=== PATIENT | female | born 1930 | race Caucasian/White ===

== ENCOUNTER 2018-08-27 17:31 | Inpatient (IN) | payer MEDICARE, MEDICAID ==
[~2018-08-27] VITALS: Ht 152.4 cm; Wt 90.9 kg
[~2018-08-27 17:31] MED LIST: BECL7.3A INH; CLOP75TA15 PO; COMIN IH; IBUP-24 PO; INSU100V36 SQ; LANTUS SQ; LOSA25TA96 PO
[2018-08-27] MEDS ORDERED: morphine 4 MG/ML inj SYRINge IV PRN (18:10)
[2018-08-27] MEDS ORDERED: normal saline 1000ML IV soln IVB ONE (18:10)
[2018-08-27] MEDS ORDERED: ondansetron/PF 4mg/2ml inj IV ONE ×2 (18:10→23:10)
[2018-08-27 19:33] LABS: BASOPHILS # (AUTO) 0.1 X10'3 (0-0.2); BASOPHILS % (AUTO) 0.4 % (0-1); EOSINOPHILS % (AUTO) 0 % (0-6); HEMOGLOBIN 13.4 g/dl (12.0-16.0); LYMPHOCYTES # (AUTO) 0.8 X10'3 (1.1-4.8); LYMPHOCYTES % (AUTO) 3.7 % (21-51); MEAN CORPUSCULAR HEMOGLOBIN 29.6 PG (27.0-31.0); MEAN CORPUSCULAR HGB CONC 33.4 % (33.0-36.5); MEAN CORPUSCULAR VOLUME 88.7 FL (78-98); MEAN PLATELET VOLUME 10.7 FL (7.4-10.4); MONOCYTES % (AUTO) 4.4 % (2-12); NEUTROPHILS # (AUTO) 20.2 X10'3 (1.8-7.7); NEUTROPHILS % (AUTO) 91.5 % (42-75); PLATELET COUNT 156 X10'3 (140-440); RED BLOOD COUNT 4.51 X10'6 (4.20-5.60); RED CELL DISTRIBUTION WIDTH 13.9 % (11.5-14.5); WHITE BLOOD COUNT 22.1 X10'3 (4.5-11.0)
[2018-08-27] MEDS ORDERED: levoFLOXACIN-Levaquin 750MG/D5 150 ML IV ONE (19:35)
[2018-08-27 19:49] LABS: ALANINE AMINOTRANSFERASE 24 U/L (12-78); ALBUMIN 2.8 G/DL (3.4-5.0); ALBUMIN/GLOBULIN RATIO 0.7 (1.1-1.5); ALKALINE PHOSPHATASE 79 IU/L (46-116); ANION GAP 7 (8-16); ASPARTATE AMINO TRANSFERASE 22 U/L (10-37); BILIRUBIN,TOTAL 0.7 MG/DL (0.1-1.0); BLOOD UREA NITROGEN 14 MG/DL (7-18); BUN/CREATININE RATIO 14.1 (6.6-38.0); CALCIUM 8.3 MG/DL (8.5-10.1); CHLORIDE 100 MMOL/L (99-107); CREATININE 0.99 MG/DL (0.40-0.90); GLUCOSE 229 MG/DL (70-104); POTASSIUM 3.4 MMOL/L (3.5-5.1); SODIUM 140 MMOL/L (135-145); TOTAL CARBON DIOXIDE 32.6 MMOL/L (24-32); TOTAL PROTEIN 6.8 G/DL (6.4-8.2); eGFR 53 ML/MIN
[2018-08-27] MEDS ORDERED: normal saline 1000ML IV soln IV ONE (19:50)
[2018-08-27 21:28] LABS: LARGE PLATELETS FEW; PLATELET ESTIMATE NORMAL
[2018-08-27] MEDS ORDERED: dextrose ORAL solution 15 GM/59 ML bottle PO PRN ×2 (23:05)
[2018-08-27] MEDS ORDERED: dextrose 50%-water 50ml dispensing syringe IV PRN ×2 (23:05)
[2018-08-27] MEDS ORDERED: glucagon, human recombinant 1mg kit SUBCUT PRN (23:05)
[2018-08-27] MEDS ORDERED: MESSAGE TO PHARMACY PO ONE (23:05)
[2018-08-27] MEDS ORDERED: FURO-150 PO (23:07)
[2018-08-27] MEDS ORDERED: PANT-47 PO (23:07)
[2018-08-27] MEDS ORDERED: INSU100C4 SQ (23:10)
[2018-08-27 23:25] LABS: LIPASE < 50 U/L (73-393)
[2018-08-27] MEDS ORDERED: potassium Cl 20 mEq SR tablet PO STA (23:37)
[2018-08-27] MEDS ORDERED: ondansetron/PF 4mg/2ml inj IV PRN (23:40)
[2018-08-27] MEDS ORDERED: magnesium hydroxide 30ml (MOM) UD suspension PO PRN (23:40)
[2018-08-27] MEDS ORDERED: mag hydrox/Alum hydrox/simeth 30ml oral suspension PO PRN (23:40)
[2018-08-27] MEDS ORDERED: acetaminophen 325mg tablet PO PRN (23:40)
[2018-08-27] MEDS ORDERED: polyethylene glycol 3350 17gm powd pack PO PRN (23:50)
[2018-08-28] VITALS (7 sets, daily range): BP systolic 112–202; BP diastolic 53–165
[2018-08-28] MEDS: ipratropium/albuterol 3ml nebule NEB PRN ×2 (01:38→19:38)
[2018-08-28 06:35] LABS: ALBUMIN 2.7 G/DL (3.4-5.0); ANION GAP 8 (8-16); BLOOD UREA NITROGEN 13 MG/DL (7-18); BUN/CREATININE RATIO 13.7 (6.6-38.0); CALCIUM 7.8 MG/DL (8.5-10.1); CHLORIDE 103 MMOL/L (99-107); CREATININE 0.95 MG/DL (0.40-0.90); GLUCOSE 229 MG/DL (70-104); POTASSIUM 4.2 MMOL/L (3.5-5.1); SODIUM 139 MMOL/L (135-145); eGFR 56 ML/MIN
[2018-08-28] MEDS: docusate sod 100mg capsule PO SCH ×2 (07:48→20:50)
[2018-08-28] MEDS: potassium Cl 20 mEq SR tablet PO SCH (07:49)
[2018-08-28] MEDS ORDERED: docusate sod 100mg capsule PO SCH (08:00)
[2018-08-28] MEDS ORDERED: INSU100I31 (09:07)
[2018-08-28] MEDS ORDERED: IPRA3AMP31 (09:07)
[2018-08-28] MEDS ORDERED: LORazepam 2 mg/ml vial IV ONE ×2 (10:35→21:35)
[2018-08-28] MEDS: acetaminophen 325mg tablet PO PRN ×2 (10:41→17:12)
[2018-08-28 10:44] LABS: CLARITY,URINE CLEAR (Clear); COLOR,URINE YELLOW (Yellow); GLUCOSE, URINE NEGATIVE (Neg); KETONES,URINE NEGATIVE (Neg); LEUKOCYTE ESTERASE ,URINE SMALL (Neg); NITRITES, URINE POSITIVE (Neg); OCCULT BLOOD,URINE NEGATIVE (Neg); PROTEIN,URINE NEGATIVE (Neg); UROBILINOGEN,URINE 0.2 E.U/dL (0.2-1.0)
[2018-08-28 10:55] LABS: UA COLLECTION TYPE NON-SPECIFIED
[2018-08-28 10:56] LABS: BACTERIA,URINE 4+ /HPF (Neg); RBC,URINE NONE SEEN /HPF (0-2)
[2018-08-28 10:57] LABS: MUCUS STRANDS NONE SEEN /LPF (Neg); SQUAMOUS EPITHELIAL CELL,UR FEW /LPF (FEW)
[2018-08-28] MEDS: levoFLOXACIN-Levaquin 750MG/D5 150 ML IV SCH (11:18)
[2018-08-28] MEDS: insulin Lispro (HumaLOG) vial - multi-dose SQ SCH (18:44)
[2018-08-28] MEDS: diatr meglu/diatrizoate 30ml oral sol.-(3 dose) bottle PO SCH (20:50)
[2018-08-28] MEDS: sennosides/docusate sodium tablet PO SCH (20:50)
[2018-08-28] MEDS: insulin glargine (Lantus) pen - multi-dose SQ SCH (20:57)
[2018-08-28] MEDS ORDERED: hydrALAZINE 20mg/ml inj. IV PRN (21:35)
[2018-08-29] VITALS (8 sets, daily range): BP systolic 115–179; BP diastolic 65–99
[2018-08-29] MEDS ORDERED: normal saline 1000ml 1,000 ML IV SCH
[2018-08-29] MEDS: ipratropium/albuterol 3ml nebule NEB PRN (00:04)
[2018-08-29] MEDS ORDERED: furosemide 40mg/4ml inj ONE (00:44)
[2018-08-29 00:46] LABS: ABG BASE EXCESS -0.1 mmol/L (-2.0-3.0); ABG HCO3 29.7 mmol/L (22.0-26.0); ABG OXYGEN SATURATION 93.4 % (95-98); ABG PCO2 (T) 70.4 mmHg (32.0-45.0); ABG PH (T) 7.236 (7.350-7.450); ABG PO2 (T) 64.5 mmHg (83-108); ALLEN'S TEST Positive; FCOHb 1.4 % (0.5-1.5); FLOW 6 L/min; FMetHb 0.2 % (0.3-1.12); FO2Hb 91.9 % (94-100); PATIENT TEMPERATURE 35.6; RESPIRATORY RATE (OBSERVED) 20 b/min; TOTAL HEMOGLOBIN 14.1 G/dl (12.0-16.0)
[2018-08-29] MEDS ORDERED: methylPREDNISolone sod succ 125mg/2ml vial IV ONE (00:50)
[2018-08-29] MEDS: morphine 2 MG/ML inj. syringe IV PRN ×2 (00:57→08:14)
[2018-08-29 01:59] LABS: ALBUMIN 2.9 G/DL (3.4-5.0); ANION GAP 11 (8-16); BLOOD UREA NITROGEN 13 MG/DL (7-18); BUN/CREATININE RATIO 14.6 (6.6-38.0); CALCIUM 8.8 MG/DL (8.5-10.1); CHLORIDE 97 MMOL/L (99-107); CREATININE 0.89 MG/DL (0.40-0.90); GLUCOSE 293 MG/DL (70-104); MAGNESIUM 1.5 MG/DL (1.5-2.4); POTASSIUM 4.3 MMOL/L (3.5-5.1); SODIUM 136 MMOL/L (135-145); TROPONIN I 0.04 NG/ML (0.0-0.05); eGFR 60 ML/MIN
[2018-08-29 02:31] LABS: BASOPHILS % (AUTO) 0.3 % (0-1); EOSINOPHILS % (AUTO) 0 % (0-6); HEMATOCRIT 41.5 % (35.0-45.0); HEMOGLOBIN 13.4 g/dl (12.0-16.0); LYMPHOCYTES % (AUTO) 4.2 % (21-51); MEAN CORPUSCULAR HEMOGLOBIN 29.4 PG (27.0-31.0); MEAN CORPUSCULAR HGB CONC 32.2 % (33.0-36.5); MEAN CORPUSCULAR VOLUME 91.1 FL (78-98); MEAN PLATELET VOLUME 11.6 FL (7.4-10.4); MONOCYTES % (AUTO) 3.7 % (2-12); NEUTROPHILS # (AUTO) 20.2 X10'3 (1.8-7.7); NEUTROPHILS % (AUTO) 91.8 % (42-75); PLATELET COUNT 162 X10'3 (140-440); RED BLOOD COUNT 4.55 X10'6 (4.20-5.60); RED CELL DISTRIBUTION WIDTH 13.4 % (11.5-14.5)
[2018-08-29 02:32] LABS: BASOPHILS # (AUTO) 0.1 X10'3 (0-0.2); LYMPHOCYTES # (AUTO) 0.9 X10'3 (1.1-4.8); MONOCYTES # (AUTO) 0.8 X10'3 (0-0.9)
[2018-08-29 02:43] LABS: LARGE PLATELETS MODERATE; PLATELET ESTIMATE DECREASED
[2018-08-29 02:51] LABS: HEMOGLOBIN A1C 7.6 % (4.5-6.2)
[2018-08-29 02:55] LABS: ABG PCO2 (T) 58.9 mmHg (32.0-45.0); ABG PH (T) 7.314 (7.350-7.450); ALLEN'S TEST Positive; MINUTE VOLUME 10 L/min; PATIENT TEMPERATURE 35.9; RESPIRATORY RATE 20 b/min; RESPIRATORY RATE (OBSERVED) 25 b/min
[2018-08-29 02:56] LABS: ABG BASE EXCESS 1.7 mmol/L (-2.0-3.0); ABG HCO3 29.7 mmol/L (22.0-26.0); ABG OXYGEN SATURATION 96.6 % (95-98); FCOHb 1.3 % (0.5-1.5); FMetHb 0.1 % (0.3-1.12); FO2Hb 95.2 % (94-100); TOTAL HEMOGLOBIN 13.9 G/dl (12.0-16.0)
[2018-08-29] MEDS: diatr meglu/diatrizoate 30ml oral sol.-(3 dose) bottle PO SCH ×2 (07:43→20:46)
[2018-08-29] MEDS: methylPREDNISolone sod succ/PF 40mg inj. IV SCH ×3 (07:45→19:58)
[2018-08-29] MEDS ORDERED: furosemide 20MG tablet PO SCH (08:00)
[2018-08-29] MEDS ORDERED: INSULIN ASPART 10 UNIT SQ SCH (08:00)
[2018-08-29] MEDS: docusate sod 100mg capsule PO SCH ×2 (08:00→19:59)
[2018-08-29] MEDS: insulin Lispro (HumaLOG) vial - multi-dose SQ SCH ×4 (08:04→20:56)
[2018-08-29] MEDS: levoFLOXACIN-Levaquin 750MG/D5 150 ML IV SCH (08:18)
[2018-08-29] MEDS: pantoprazole 40mg Tablet.DR PO SCH (08:31)
[2018-08-29] MEDS: potassium Cl 20 mEq SR tablet PO SCH (08:31)
[2018-08-29] MEDS: clopidogrel 75mg tablet PO SCH (08:32)
[2018-08-29 08:46] LABS: ABG BASE EXCESS -1.5 mmol/L (-2.0-3.0); ABG OXYGEN SATURATION 97.6 % (95-98); ABG PCO2 (T) 49.1 mmHg (32.0-45.0); ABG PH (T) 7.324 (7.350-7.450); ALLEN'S TEST Positive; FCOHb 1.3 % (0.5-1.5); FMetHb 0.3 % (0.3-1.12); RESPIRATORY RATE 20 b/min; TOTAL HEMOGLOBIN 12.6 G/dl (12.0-16.0)
[2018-08-29] MEDS ORDERED: iohexol 300mg/ml 100ml inj. ONE (10:24)
[2018-08-29] MEDS ORDERED: furosemide 40mg/4ml inj IV ONE (13:10)
[2018-08-29] MEDS: furosemide 40mg/4ml inj IV SCH (19:58)
[2018-08-29] MEDS: lactobacillus rhamnosus 10,000 MMU CELLS/CAPSULE PO SCH (19:59)
[2018-08-29] MEDS: sennosides/docusate sodium tablet PO SCH (20:46)
[2018-08-29] MEDS: insulin glargine (Lantus) pen - multi-dose SQ SCH (20:55)
[2018-08-30] MEDS: methylPREDNISolone sod succ/PF 40mg inj. IV SCH ×4 (02:31→20:35)
[2018-08-30 03:00] VITALS: BP 110/66
[2018-08-30 06:07] LABS: ALBUMIN 2.5 G/DL (3.4-5.0); ANION GAP 6 (8-16); BLOOD UREA NITROGEN 22 MG/DL (7-18); BUN/CREATININE RATIO 21.8 (6.6-38.0); CALCIUM 9.2 MG/DL (8.5-10.1); CHLORIDE 99 MMOL/L (99-107); CREATININE 1.01 MG/DL (0.40-0.90); GLUCOSE 130 MG/DL (70-104); POTASSIUM 4.4 MMOL/L (3.5-5.1); SODIUM 141 MMOL/L (135-145); TOTAL CARBON DIOXIDE 36.4 MMOL/L (24-32); eGFR 52 ML/MIN
[2018-08-30 06:12] LABS: BASOPHILS % (AUTO) 0 % (0-1); EOSINOPHILS % (AUTO) 0 % (0-6); HEMATOCRIT 39.8 % (35.0-45.0); HEMOGLOBIN 13.1 g/dl (12.0-16.0); LYMPHOCYTES # (AUTO) 0.7 X10'3 (1.1-4.8); LYMPHOCYTES % (AUTO) 3.6 % (21-51); MEAN CORPUSCULAR HEMOGLOBIN 29.4 PG (27.0-31.0); MEAN CORPUSCULAR HGB CONC 32.8 % (33.0-36.5); MEAN CORPUSCULAR VOLUME 89.7 FL (78-98); MEAN PLATELET VOLUME 11.2 FL (7.4-10.4); MONOCYTES # (AUTO) 0.5 X10'3 (0-0.9); MONOCYTES % (AUTO) 2.5 % (2-12); NEUTROPHILS # (AUTO) 19.2 X10'3 (1.8-7.7); NEUTROPHILS % (AUTO) 93.9 % (42-75); PLATELET COUNT 164 X10'3 (140-440); RED BLOOD COUNT 4.44 X10'6 (4.20-5.60); RED CELL DISTRIBUTION WIDTH 14.4 % (11.5-14.5); WHITE BLOOD COUNT 20.4 X10'3 (4.5-11.0)
[2018-08-30 07:00] VITALS: BP 110/68
[2018-08-30] MEDS: furosemide 40mg/4ml inj IV SCH ×2 (07:48→20:35)
[2018-08-30] MEDS: lactobacillus rhamnosus 10,000 MMU CELLS/CAPSULE PO SCH ×2 (07:53→20:35)
[2018-08-30] MEDS: pantoprazole 40mg Tablet.DR PO SCH (07:53)
[2018-08-30] MEDS: potassium Cl 20 mEq SR tablet PO SCH (07:53)
[2018-08-30] MEDS: docusate sod 100mg capsule PO SCH ×2 (07:53→20:36)
[2018-08-30] MEDS: clopidogrel 75mg tablet PO SCH (07:55)
[2018-08-30] MEDS: insulin Lispro (HumaLOG) vial - multi-dose SQ SCH ×3 (08:46→19:04)
[2018-08-30 09:11] LABS: LARGE PLATELETS FEW; PLATELET ESTIMATE NORMAL
[2018-08-30 11:00] VITALS: BP 106/71
[2018-08-30] MEDS: CefTRIAXone/D5W-Rocephin 1gm 50 ML IV SCH (12:13)
[2018-08-30 15:00] VITALS: BP 139/77
[2018-08-30 18:00] VITALS: BP 142/78
[2018-08-30] MEDS: sennosides/docusate sodium tablet PO SCH (20:35)
[2018-08-30] MEDS: insulin glargine (Lantus) pen - multi-dose SQ SCH (20:43)
[2018-08-30 22:00] VITALS: BP 143/91
[2018-08-31] MEDS: methylPREDNISolone sod succ/PF 40mg inj. IV SCH ×4 (01:35→19:35)
[2018-08-31 02:00] VITALS: BP 161/97
[2018-08-31 05:17] LABS: BASOPHILS % (AUTO) 0.2 % (0-1); EOSINOPHILS % (AUTO) 0 % (0-6); HEMATOCRIT 45.4 % (35.0-45.0); HEMOGLOBIN 14.5 g/dl (12.0-16.0); LYMPHOCYTES # (AUTO) 0.5 X10'3 (1.1-4.8); LYMPHOCYTES % (AUTO) 3.5 % (21-51); MEAN CORPUSCULAR VOLUME 90.6 FL (78-98); MEAN PLATELET VOLUME 11.7 FL (7.4-10.4); MONOCYTES # (AUTO) 0.3 X10'3 (0-0.9); MONOCYTES % (AUTO) 1.9 % (2-12); NEUTROPHILS # (AUTO) 14.6 X10'3 (1.8-7.7); NEUTROPHILS % (AUTO) 94.4 % (42-75); PLATELET COUNT 223 X10'3 (140-440); RED BLOOD COUNT 5.01 X10'6 (4.20-5.60); RED CELL DISTRIBUTION WIDTH 14.8 % (11.5-14.5); WHITE BLOOD COUNT 15.4 X10'3 (4.5-11.0)
[2018-08-31 05:34] LABS: ALBUMIN 2.9 G/DL (3.4-5.0); ANION GAP 6 (8-16); BLOOD UREA NITROGEN 27 MG/DL (7-18); BUN/CREATININE RATIO 23.5 (6.6-38.0); CALCIUM 9.5 MG/DL (8.5-10.1); CHLORIDE 96 MMOL/L (99-107); CREATININE 1.15 MG/DL (0.40-0.90); GLUCOSE 206 MG/DL (70-104); POTASSIUM 4.9 MMOL/L (3.5-5.1); SODIUM 141 MMOL/L (135-145); TOTAL CARBON DIOXIDE 39.1 MMOL/L (24-32); eGFR 45 ML/MIN
[2018-08-31 06:00] VITALS: BP 145/75
[2018-08-31 06:17] LABS: LARGE PLATELETS FEW; PLATELET ESTIMATE NORMAL
[2018-08-31] MEDS ORDERED: levoFLOXACIN-Levaquin 750MG/D5 150 ML IV SCH (08:00)
[2018-08-31] MEDS: pantoprazole 40mg Tablet.DR PO SCH (08:27)
[2018-08-31] MEDS: docusate sod 100mg capsule PO SCH ×2 (08:27→19:35)
[2018-08-31] MEDS: clopidogrel 75mg tablet PO SCH (08:27)
[2018-08-31] MEDS: CefTRIAXone/D5W-Rocephin 1gm 50 ML IV SCH (08:27)
[2018-08-31] MEDS: potassium Cl 20 mEq SR tablet PO SCH (08:27)
[2018-08-31] MEDS: lactobacillus rhamnosus 10,000 MMU CELLS/CAPSULE PO SCH ×2 (08:27→19:35)
[2018-08-31] MEDS: furosemide 40mg/4ml inj IV SCH ×2 (08:28→19:34)
[2018-08-31] MEDS: insulin Lispro (HumaLOG) vial - multi-dose SQ SCH ×4 (08:41→21:37)
[2018-08-31] MEDS: ipratropium/albuterol 3ml nebule NEB PRN (09:04)
[2018-08-31 11:00] VITALS: BP 94/65
[2018-08-31] MEDS: ipratropium/albuterol 3ml nebule NEB SCH ×4 (11:20→23:26)
[2018-08-31 15:52] VITALS: BP 128/64
[2018-08-31 19:00] VITALS: BP 130/97
[2018-08-31] MEDS: sennosides/docusate sodium tablet PO SCH (19:35)
[2018-08-31] MEDS: insulin glargine (Lantus) pen - multi-dose SQ SCH (21:35)
[2018-08-31 23:00] VITALS: BP 125/73
[2018-09-01 03:00] VITALS: BP 124/70
[2018-09-01] MEDS: ipratropium/albuterol 3ml nebule NEB SCH ×6 (03:18→23:26)
[2018-09-01] MEDS: methylPREDNISolone sod succ/PF 40mg inj. IV SCH ×4 (03:56→19:52)
[2018-09-01 05:36] LABS: BASOPHILS % (AUTO) 0.2 % (0-1); EOSINOPHILS % (AUTO) 0 % (0-6); HEMOGLOBIN 13.7 g/dl (12.0-16.0); LYMPHOCYTES # (AUTO) 0.9 X10'3 (1.1-4.8); LYMPHOCYTES % (AUTO) 7.5 % (21-51); MEAN CORPUSCULAR HEMOGLOBIN 28.7 PG (27.0-31.0); MEAN CORPUSCULAR VOLUME 89.8 FL (78-98); MEAN PLATELET VOLUME 12.2 FL (7.4-10.4); MONOCYTES # (AUTO) 0.9 X10'3 (0-0.9); MONOCYTES % (AUTO) 7.1 % (2-12); NEUTROPHILS # (AUTO) 10.5 X10'3 (1.8-7.7); NEUTROPHILS % (AUTO) 85.2 % (42-75); PLATELET COUNT 195 X10'3 (140-440); RED BLOOD COUNT 4.78 X10'6 (4.20-5.60); RED CELL DISTRIBUTION WIDTH 14.1 % (11.5-14.5); WHITE BLOOD COUNT 12.3 X10'3 (4.5-11.0)
[2018-09-01 05:56] LABS: ALBUMIN 2.6 G/DL (3.4-5.0); ANION GAP 4 (8-16); BLOOD UREA NITROGEN 35 MG/DL (7-18); BUN/CREATININE RATIO 31.5 (6.6-38.0); CALCIUM 8.9 MG/DL (8.5-10.1); CHLORIDE 98 MMOL/L (99-107); CREATININE 1.11 MG/DL (0.40-0.90); GLUCOSE 171 MG/DL (70-104); POTASSIUM 4.1 MMOL/L (3.5-5.1); SODIUM 141 MMOL/L (135-145); TOTAL CARBON DIOXIDE 39.4 MMOL/L (24-32); eGFR 46 ML/MIN
[2018-09-01 06:00] VITALS: BP 132/56
[2018-09-01 06:33] LABS: LARGE PLATELETS FEW; PLATELET ESTIMATE NORMAL
[2018-09-01] MEDS: docusate sod 100mg capsule PO SCH ×2 (08:15→19:51)
[2018-09-01] MEDS: pantoprazole 40mg Tablet.DR PO SCH (08:15)
[2018-09-01] MEDS: clopidogrel 75mg tablet PO SCH (08:15)
[2018-09-01] MEDS: lactobacillus rhamnosus 10,000 MMU CELLS/CAPSULE PO SCH ×2 (08:15→19:51)
[2018-09-01] MEDS: furosemide 40mg/4ml inj IV SCH ×2 (08:18→19:52)
[2018-09-01] MEDS: CefTRIAXone/D5W-Rocephin 1gm 50 ML IV SCH (08:18)
[2018-09-01 11:00] VITALS: BP 156/89
[2018-09-01] MEDS ORDERED: magnesium citrate 296ml oral solution PO ONE (12:15)
[2018-09-01] MEDS: insulin Lispro (HumaLOG) vial - multi-dose SQ SCH ×3 (13:18→21:46)
[2018-09-01 15:00] VITALS: BP 129/77
[2018-09-01 19:00] VITALS: BP 104/58
[2018-09-01] MEDS: sennosides/docusate sodium tablet PO SCH (20:02)
[2018-09-01] MEDS: insulin glargine (Lantus) pen - multi-dose SQ SCH (21:48)
[2018-09-01 23:00] VITALS: BP 122/58
[2018-09-02] MEDS: methylPREDNISolone sod succ/PF 40mg inj. IV SCH ×3 (01:46→13:28)
[2018-09-02 03:00] VITALS: BP 92/51
[2018-09-02] MEDS: ipratropium/albuterol 3ml nebule NEB SCH ×3 (03:22→11:16)
[2018-09-02 05:19] LABS: BASOPHILS % (AUTO) 0.2 % (0-1); EOSINOPHILS % (AUTO) 0 % (0-6); HEMATOCRIT 43.9 % (35.0-45.0); LYMPHOCYTES # (AUTO) 1.1 X10'3 (1.1-4.8); LYMPHOCYTES % (AUTO) 8.7 % (21-51); MEAN CORPUSCULAR HEMOGLOBIN 28.8 PG (27.0-31.0); MEAN PLATELET VOLUME 11.4 FL (7.4-10.4); MONOCYTES # (AUTO) 0.9 X10'3 (0-0.9); MONOCYTES % (AUTO) 6.9 % (2-12); NEUTROPHILS % (AUTO) 84.2 % (42-75); PLATELET COUNT 205 X10'3 (140-440); RED BLOOD COUNT 4.87 X10'6 (4.20-5.60); RED CELL DISTRIBUTION WIDTH 14.4 % (11.5-14.5); WHITE BLOOD COUNT 13.1 X10'3 (4.5-11.0)
[2018-09-02 06:06] LABS: LARGE PLATELETS FEW; PLATELET ESTIMATE NORMAL
[2018-09-02 07:09] VITALS: BP 123/68
[2018-09-02] MEDS: docusate sod 100mg capsule PO SCH (08:14)
[2018-09-02] MEDS: lactobacillus rhamnosus 10,000 MMU CELLS/CAPSULE PO SCH (08:14)
[2018-09-02] MEDS: clopidogrel 75mg tablet PO SCH (08:14)
[2018-09-02] MEDS: pantoprazole 40mg Tablet.DR PO SCH (08:14)
[2018-09-02] MEDS: CefTRIAXone/D5W-Rocephin 1gm 50 ML IV SCH (08:14)
[2018-09-02] MEDS: furosemide 40mg/4ml inj IV SCH (08:15)
[2018-09-02] MEDS: insulin Lispro (HumaLOG) vial - multi-dose SQ SCH ×2 (09:04→13:47)
[2018-09-02] MEDS ORDERED: POTA20TA19 PO (10:03)
[2018-09-02] MEDS ORDERED: FURO-149 PO (10:03)
[2018-09-02] MEDS ORDERED: PRED10TA23 PO (10:03)
[2018-09-02] MEDS ORDERED: CEFP200T13 PO (10:03)
[2018-09-02] MEDS ORDERED: levoFLOXACIN 750MG TABLET PO SCH (11:00)
[2018-09-02 11:43] VITALS: BP 129/59
== END 2018-09-02 13:55 | disposition home health service (06) | DRG 871 ==
LOC: ER 17:32 → ED HOLD 23:37 → SUR 3N 08-28 02:06 → PCU 3S 08-29 01:20
PROVIDERS: ADMIT Internal Medicine; ATTEND Family Medicine
PROC: 5A09357 Assistance with Respiratory Ventilation, Less than 24 Consecutive Hours, Continuous Positive Airway Pressure (ICD-10-PCS; principal; 2018-08-29)
PROC: BW251ZZ Computerized Tomography (CT Scan) of Chest, Abdomen and Pelvis using Low Osmolar Contrast (ICD-10-PCS; 2018-08-29)
PROC: 5A09357 Assistance with Respiratory Ventilation, Less than 24 Consecutive Hours, Continuous Positive Airway Pressure (ICD-10-PCS; 2018-08-30)
DX: A41.9 Sepsis, unspecified organism (principal); J18.9 Pneumonia, unspecified organism; J96.21 Acute and chronic respiratory failure with hypoxia; I50.33 Acute on chronic diastolic (congestive) heart failure; J44.1 Chronic obstructive pulmonary disease with (acute) exacerbation; N39.0 Urinary tract infection, site not specified; J44.0 Chronic obstructive pulmonary disease with (acute) lower respiratory infection; E87.2 Acidosis; B96.20 Unspecified Escherichia coli [E. coli] as the cause of diseases classified elsewhere; F03.90 Unspecified dementia, unspecified severity, without behavioral disturbance, psychotic disturbance, mood disturbance, and anxiety; I11.0 Hypertensive heart disease with heart failure; K57.90 Diverticulosis of intestine, part unspecified, without perforation or abscess without bleeding; E87.6 Hypokalemia; K86.9 Disease of pancreas, unspecified; K59.09 Other constipation; E11.51 Type 2 diabetes mellitus with diabetic peripheral angiopathy without gangrene; I48.91 Unspecified atrial fibrillation; H91.90 Unspecified hearing loss, unspecified ear; K43.9 Ventral hernia without obstruction or gangrene; Z90.49 Acquired absence of other specified parts of digestive tract; Z99.81 Dependence on supplemental oxygen; Z88.2 Allergy status to sulfonamides; Z88.0 Allergy status to penicillin; Z88.8 Allergy status to other drugs, medicaments and biological substances; Z79.899 Other long term (current) drug therapy; Z79.4 Long term (current) use of insulin; Z85.3 Personal history of malignant neoplasm of breast; Z87.891 Personal history of nicotine dependence; Z83.3 Family history of diabetes mellitus; Z74.01 Bed confinement status
CPT/HCPCS: 36415; 36600; 71045; 71260; 74176; 74177; 76937; 80048; 80053; 81001; 82803; 82948; 83036; 83605; 83690; 83735; 83880; 84484; 85018; 85025; 87040; 87070; 87077; 87088; 87186; 93005; 93306; 94640; 94660; 94760; 96361; 96365; 96366; 96375; 97110; 97116; 97161; 97530; 99285; A4315; A4353; J0360; J0696; J1815; J1940; J1956; J2060; J2270; J2405; J2920; J2930; J7030; Q9963; Q9967

== ENCOUNTER 2019-01-06 13:31 | Inpatient (IN) | payer MEDICARE, MEDICAID | END 2019-01-16 16:15 | disposition home or self-care (01) | LOC: ER 13:31 → PCU 3S 01-08 23:29 → ED HOLD 18:13 | DX: I21.A1 Myocardial infarction type 2 (principal); J96.01 Acute respiratory failure with hypoxia; J18.1 Lobar pneumonia, unspecified organism; I48.91 Unspecified atrial fibrillation ==

== ENCOUNTER 2019-01-20 12:00 | Outpatient (CLI) | payer MEDICARE, MEDICAID ==
[~2019-01-20 12:00] MED LIST changes: -BECL7.3A INH; -CLOP75TA15 PO; +CLOP75TA33 PO; +COL100C PO; -COMIN IH; +DILT240C90 PO; +FURO-150 PO; -IBUP-24 PO; +INSU100I31 SQ; +INSU100V13 SQ; -INSU100V36 SQ; +IPRA4AER IH; -LANTUS SQ; +LEVO500T2 PO; +LISI2.5T2 PO; -LOSA25TA96 PO; +PANT-47 PO; +SIME125C88 PO
[2019-01-20 12:58] LABS: BASOPHILS % (AUTO) 0.5 % (0-1); EOSINOPHILS # (AUTO) 0.1 X10'3 (0-0.9); EOSINOPHILS % (AUTO) 0.8 % (0-6); HEMATOCRIT 39.7 % (35.0-45.0); HEMOGLOBIN 12.7 g/dl (12.0-16.0); LYMPHOCYTES # (AUTO) 1.1 X10'3 (1.1-4.8); LYMPHOCYTES % (AUTO) 11.2 % (21-51); MEAN CORPUSCULAR HEMOGLOBIN 28.6 PG (27.0-31.0); MEAN CORPUSCULAR VOLUME 89.4 FL (78-98); MEAN PLATELET VOLUME 11.2 FL (7.4-10.4); MONOCYTES # (AUTO) 0.7 X10'3 (0-0.9); MONOCYTES % (AUTO) 7.8 % (2-12); NEUTROPHILS # (AUTO) 7.6 X10'3 (1.8-7.7); NEUTROPHILS % (AUTO) 79.7 % (42-75); PLATELET COUNT 212 X10'3 (140-440); RED BLOOD COUNT 4.44 X10'6 (4.20-5.60); RED CELL DISTRIBUTION WIDTH 14.6 % (11.5-14.5); WHITE BLOOD COUNT 9.5 X10'3 (4.5-11.0)
[2019-01-20 13:05] LABS: ALBUMIN 2.5 G/DL (3.4-5.0); ANION GAP 6 (8-16); BLOOD UREA NITROGEN 21 MG/DL (7-18); BUN/CREATININE RATIO 16.9 (6.6-38.0); CHLORIDE 96 MMOL/L (99-107); CREATININE 1.24 MG/DL (0.40-0.90); GLUCOSE 215 MG/DL (70-104); POTASSIUM 4.3 MMOL/L (3.5-5.1); SODIUM 138 MMOL/L (135-145); eGFR 41 ML/MIN
[2019-01-20 13:20] LABS: LARGE PLATELETS MODERATE; PLATELET ESTIMATE NORMAL
== END 2019-01-20 23:59 | disposition home or self-care (01) ==
LOC: LAB 12:00
PROVIDERS: ATTEND Internal Medicine
DX: I11.0 Hypertensive heart disease with heart failure (principal); I50.9 Heart failure, unspecified; D64.9 Anemia, unspecified; J44.9 Chronic obstructive pulmonary disease, unspecified; Z79.899 Other long term (current) drug therapy; Z87.891 Personal history of nicotine dependence; Z88.0 Allergy status to penicillin; Z88.2 Allergy status to sulfonamides; Z88.8 Allergy status to other drugs, medicaments and biological substances
CPT/HCPCS: 36415; 80048; 85025

== ENCOUNTER 2019-02-08 12:04 | Outpatient (CLI) | payer MEDICARE, MEDICAID ==
[~2019-02-08 12:04] MED LIST changes: -LEVO500T2 PO
== END 2019-02-08 23:59 | disposition home or self-care (01) ==
LOC: RAD 12:04
PROVIDERS: ATTEND Internal Medicine
DX: J90 Pleural effusion, not elsewhere classified (principal); I70.0 Atherosclerosis of aorta; I48.91 Unspecified atrial fibrillation; I11.0 Hypertensive heart disease with heart failure; I50.9 Heart failure, unspecified; E11.9 Type 2 diabetes mellitus without complications; J44.9 Chronic obstructive pulmonary disease, unspecified; Z85.3 Personal history of malignant neoplasm of breast; Z87.891 Personal history of nicotine dependence
CPT/HCPCS: 71046

== ENCOUNTER 2019-02-27 18:06 | Inpatient (IN) | payer MEDICARE, MEDICAID | END 2019-03-14 01:15 | disposition E | LOC: PCU 3S 03-08 16:40 → ER 18:06 → ED HOLD 20:41 → ICU 2S 21:35 | PROC: 5A1945Z Respiratory Ventilation, 24-96 Consecutive Hours (ICD-10-PCS; principal; ~2019-02-27) | PROC: 0BH17EZ Insertion of Endotracheal Airway into Trachea, Via Natural or Artificial Opening (ICD-10-PCS; ~2019-02-27) | DX: J15.6 Pneumonia due to other Gram-negative bacteria (principal); J96.01 Acute respiratory failure with hypoxia; J96.02 Acute respiratory failure with hypercapnia; N39.0 Urinary tract infection, site not specified; I48.2 Chronic atrial fibrillation; Z79.01 Long term (current) use of anticoagulants ==